=== PATIENT | male | born 1960 | race Caucasian/White ===

== ENCOUNTER 2024-07-24 18:35 | Inpatient (IN) ==
--- NOTE | 2024-07-24 18:44 | Emergency Department Note ---
Impression & Plan COVID-19, Acute respiratory failure with hypoxia and hypercapnia, Bilateral pneumonia, Sepsis, Non-ST elevation [place] (NSTEMI), Elevated brain natriuretic peptide (BNP) level ED Provider Note HISTORY OF PRESENT ILLNESS: Patient is a 63-year-old male presenting with shortness of breath. Patient was diagnosed with COVID-19 yesterday in the emergency department and it was recommended that he be admitted to the hospital but he had family obligations at home and was discharged. Patient states he has been taking Paxlovid at home. He is not normally on any supplemental oxygen. He reports that his shortness of breath progressively worsened throughout the day today he had to call 911. He also has been taking prednisone at home. He denies any DVT or PE history. He is on a baby aspirin daily. He has a history of CAD with multiple stents in place. He reports diffuse chest tightness with his shortness of breath. Denies any abdominal pain, nausea or vomiting. Denies any fevers. He has been having a productive cough. He states that he is bringing up "loose sputum." Patient reportedly was hypertensive with a blood pressure of over 200s for EMS. He had saturations in the 80s per EMS, and was placed on BiPAP and route to the hospital. He reportedly was given a DuoNeb treatment and route. ROS: as above PHYSICAL EXAM: Constitutional: Patient appears in no acute distress. HENT: Head: Normocephalic and atraumatic. Eyes: EOMI, PERRL Mouth/Throat: Mucous membranes moist. Neck: Trachea midline. Neck supple. Cardiovascular: Tachycardic with regular rhythm. No murmurs, rubs or gallops. Intact distal pulses. Pulmonary/Chest: Patient presents on BiPAP with EMS. He was taken off of BiPAP and saturating 91% on room air. He is placed on 4 L nasal cannula. He is conversationally dyspneic and tachypneic. Diffuse expiratory wheezes bilaterally. Abdominal: Abdomen soft, no tenderness, rebound or guarding. Musculoskeletal: No edema, tenderness or deformity noted. Skin: Warm and dry. No rash, erythema, pallor or cyanosis Psychiatric: Appropriate mood and affect for situation. Neurological: Alert and keenly responsive. CN II-XII grossly intact, moving all extremities equally and fully. MDM: - Vitals signs showed hypertension, tachycardia, tachypnea and hypoxia. Patient was initially placed on 4 L nasal cannula on arrival to the ER, as he is maintaining his saturations at about 89 to 91% on room air. He was given an hour-long DuoNeb treatment. - History obtained via patient. History as above. 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 At this time, monitor showed rate of 95 bpm with normal sinus rhythm, per my interpretation. - External medical records reviewed. Radiation oncology history and physical exam note dated 07/11/2024 was reviewed. Patient was seen for squamous cell carcinoma of the lower lobe of the right lung. He was planned to start radiation therapy in July 2024. - EKG interpreted by myself showed normal sinus rhythm. Rate tachycardic at 124 bpm. QT 382. Noted to have a right bundle branch block. - Laboratory workup interpreted by myself showed leukocytosis (WBC 17.42) with neutrophil predominance; normal PT/INR; elevated BUN (34); elevated troponin (37.7); elevated BNP (119); normal procalcitonin; normal lactate - Blood cultures added to workup - CXR shows bilateral pulmonary consolidations, per my interpretation. - IV Levaquin ordered for sepsis - Viral respiratory panel positive for COVID-19. - VBG shows respiratory acidosis with pH 7.24 and pCO2 of 69 mmHg. Patient was transition to BiPAP. He was on the BiPAP for about 2 hours. Repeat ABG shows worsening gas. However, on reassessment at 19:40, the patient does appear significantly more comfortable on the BiPAP. Tachypnea is improved. He does mentate and answer questions while in the BiPAP. No indication for intubation at this time. - Discussion was had with complex case manager about patient's case and need for admission - Hospitalist, Dr. Wharton, consulted for admission - Patient admitted to [facility] service for further evaluation and management. I have personally spent 64 minutes of critical care time in the direct management of this patient. This includes bedside care, interpretation of diagnostic studies, and testing, discussion with consultants, patient, and family members, and other required patient management activities. This 64 minutes is in excess of all separately billable procedures. ASSESSMENT AND PLAN: Diagnosis: COVID-19; sepsis; bilateral pneumonia; acute hypoxemic and hypercarbic respiratory failure; NSTEMI; elevated BNP Plan: admit Past Med/Surg History Problem List (Updated 07/24/24 @ 21:45 by Pam Lambert MD) Elevated brain natriuretic peptide (BNP) level (Acute) Non-ST elevation [place] (NSTEMI) (Acute) Sepsis (Acute) Bilateral pneumonia (Acute) Acute respiratory failure with hypoxia and hypercapnia (Acute) COVID-19 (Acute) Squamous cell carcinoma of lower lobe of right lung (Chronic 06/18/24) Medical History (Updated 07/24/24 @ 21:45 by Pam Lambert MD) Carotid artery stenosis Carotid doppler 09/2022: CHANEL/LICA less than 50% stenosis H/O vertigo Per records Asthma Per records History of ST elevation myocardial infarction (STEMI) 06/2015 > BMS x1 Follows with Dr. Cruz CAD (coronary artery disease) 06/2015 cath > BMS x1 07/2015 cath (d/t angina) > TAO x2 Follows with Dr. Cruz Squamous cell carcinoma of lung Right upper lobectomy, right thoractomy (08/2018) Hx of colonic polyps Pulmonary nodule Hx of renal cell carcinoma (2018) s/p Left total nephrectomy (10/2018), partial right nephrectomy (09/2018)- due to renal cell carcinoma Dyslipidemia Depression Hypertension COPD (chronic obstructive pulmonary disease) Surgical History (Updated 07/11/24 @ 08:28 by Padmini Mccarthy RN) History of cataract surgery History of anesthesia reaction "fentanyl gives me a pretty bad hangover" Hx of heart artery stent 06/2015 cath > BMS x1 07/2015 cath (d/t angina) > TAO x2 Hx of colonoscopy with polypectomy x2 Hx of biopsy Renal Hx of cardiac catheterization 06/2015 cath > BMS x1 07/2015 cath (d/t angina) > TAO x2 History of surgery on arm Left biceps tendon Hx of partial nephrectomy (2018) Left total (10/2018), partial right (09/2018)- due to renal cell carcinoma History of lobectomy of lung (08/2018) Right upper lobectomy, right thoractomy Hx of inguinal hernia repair Unsure of side Hx of wisdom tooth extraction H/O arthroscopy of left knee Family History (Updated 07/11/24 @ 09:08 by Padmini Mccarthy RN) Unknown No problems noted. 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 How many Children do You have: 0 Feels Safe at Home: Yes Childhood Exposure to Second-Hand Smoke: Yes Diet: regular caffeine: Yes during the past year weight has: remained stable Dental Care, Regularly: No Assistive Devices: Glasses and Nebulizer Allergies Allergies Allergy/AdvReac Type Severity Reaction Status Date / Time No Known Allergies Allergy Mild Verified 07/11/24 08:20 Home Meds Home Medications Medication Instructions Recorded Confirmed albuterol sulfate 90 mcg/actuation 2 puff inhalation Q4H PRN wheezing 01/24/23 07/24/24 aerosol inhaler or SOB ezetimibe 10 mg tablet 10 mg PO QAM 01/24/23 07/24/24 lisinopril 2.5 mg tablet 2.5 mg PO QAM 01/24/23 07/24/24 metoprolol succinate 50 mg 50 mg PO QAM 01/24/23 07/24/24 tablet,extended release 24 hr nitroglycerin 0.4 mg sublingual 4 mg sublingual DIRECTED PRN 01/24/23 07/24/24 tablet (Nitrostat) Chest Pain rosuvastatin 40 mg tablet 40 mg PO QAM 01/24/23 07/24/24 aspirin 81 mg tablet,delayed 81 mg PO DAILY 01/26/23 07/24/24 release calcium carb 1,000 mg-mag hydrox 2 tab PO DIRECTED PRN Acid 01/26/23 07/24/24 200 mg-simeth 40 mg chewable Reflux tablet (Rolaids Advanced Antacid Plus Anti-gas) calcium carbonate (Tums) 400 mg PO BID PRN Acid Reflux 01/26/23 07/24/24 melatonin 10 mg tablet 30 mg PO HS PRN Sleep 01/26/23 07/24/24 albuterol sulfate 1.25 mg/3 mL 1.25 mg inhalation BID 06/11/24 07/24/24 solution for nebulization fluticasone 250 mcg-salmeterol 50 1 inh inhalation BID 06/11/24 07/24/24 mcg/dose blistr powdr for inhalation Previous Rx's Medication Instructions Recorded nirmatrelvir 300 mg (150 mg See Rx Instructions PO .COMPLEX 07/23/24 x2)-ritonavir 100 mg tablet,dose #30 ea pack (Paxlovid) prednisone 20 mg tablet 20 mg PO BID 5 days #10 tabs 07/23/24 Results & Data (ED) Vital Signs Vital Signs - 24 hr 07/24/24 18:40 07/24/24 18:40 07/24/24 18:40 Temperature Temperature Source Pulse Rate 124 H Pulse Rate [Right Finger] 125 H Pulse Rate from SpO2 Sensor Respiratory Rate 22 18 Respiratory Effort / Characteristics Non-Labored Spontaneous Respiratory Depth Respiratory Pattern Blood Pressure Blood Pressure [Left Arm] 191/127 H Blood Pressure Mean Blood Pressure Mean [Left Arm] 148 Blood Pressure Position Blood Pressure Position [Left Arm] Lying Pulse Oximetry 91 90 92 Oxygen Delivery Method Room Air Room Air Nasal Cannula Oxygen Flow Rate 4 Fraction of Inspired Oxygen Sepsis Recent Fever Within 48 Hours Sepsis New/Unexplained Change in Mental Status Sepsis Action Taken by Nursing 07/24/24 18:44 07/24/24 18:44 07/24/24 18:45 Temperature 36.7 C Temperature Source Axillary Pulse Rate 122 H 120 H Pulse Rate [Right Finger] Pulse Rate from SpO2 Sensor Respiratory Rate 18 33 H Respiratory Effort / Characteristics Non-Labored Spontaneous Non-Labored Spontaneous Respiratory Depth Respiratory Pattern Blood Pressure 158/114 H 158/114 H Blood Pressure [Left Arm] Blood Pressure Mean 128 123 Blood Pressure Mean [Left Arm] Blood Pressure Position Lying Blood Pressure Position [Left Arm] Pulse Oximetry 99 98 Oxygen Delivery Method Nebulizer Nebulizer Oxygen Flow Rate Fraction of Inspired Oxygen Sepsis Recent Fever Within 48 Hours No Sepsis New/Unexplained Change in Mental Status No Sepsis Action Taken by Nursing No Action Required 07/24/24 18:50 07/24/24 18:56 07/24/24 19:00 Temperature Temperature Source Pulse Rate 121 H 117 H Pulse Rate [Right Finger] 120 H Pulse Rate from SpO2 Sensor 117 H Respiratory Rate 28 H 33 H Respiratory Effort / Characteristics Spontaneous Short of Breath Respiratory Depth Respiratory Pattern Blood Pressure 143/94 H Blood Pressure [Left Arm] Blood Pressure Mean 110 Blood Pressure Mean [Left Arm] Blood Pressure Position Blood Pressure Position [Left Arm] Pulse Oximetry 92 98 Oxygen Delivery Method Nasal Cannula Nebulizer Oxygen Flow Rate 4 Fraction of Inspired Oxygen Sepsis Recent Fever Within 48 Hours Sepsis New/Unexplained Change in Mental Status Sepsis Action Taken by Nursing 07/24/24 19:26 07/24/24 19:30 07/24/24 19:30 Temperature Temperature Source Pulse Rate 113 H 110 H 111 H Pulse Rate [Right Finger] Pulse Rate from SpO2 Sensor Respiratory Rate 30 H 35 H 35 H Respiratory Effort / Characteristics Spontaneous Short of Breath Respiratory Depth Normal Respiratory Pattern Tachypnea Blood Pressure 147/85 H 147/85 H Blood Pressure [Left Arm] Blood Pressure Mean 99 99 Blood Pressure Mean [Left Arm] Blood Pressure Position Blood Pressure Position [Left Arm] Pulse Oximetry 97 97 98 Oxygen Delivery Method BiPAP BiPAP Oxygen Flow Rate Fraction of Inspired Oxygen 40 Sepsis Recent Fever Within 48 Hours Sepsis New/Unexplained Change in Mental Status Sepsis Action Taken by Nursing 07/24/24 19:45 07/24/24 20:26 07/24/24 21:32 Temperature Temperature Source Pulse Rate 112 H 114 H 95 H Pulse Rate [Right Finger] Pulse Rate from SpO2 Sensor 112 H Respiratory Rate 40 H Respiratory Effort / Characteristics Respiratory Depth Respiratory Pattern Blood Pressure 139/86 148/89 H 139/85 Blood Pressure [Left Arm] Blood Pressure Mean 103 Blood Pressure Mean [Left Arm] Blood Pressure Position Blood Pressure Position [Left Arm] Pulse Oximetry 98 Oxygen Delivery Method BiPAP Oxygen Flow Rate Fraction of Inspired Oxygen Sepsis Recent Fever Within 48 Hours Sepsis New/Unexplained Change in Mental Status Sepsis Action Taken by Nursing Laboratory Data 07/24/24 18:40 07/24/24 19:46 Lab Results 07/24/24 07/24/24 07/24/24 Range/Units 18:40 19:43 19:46 WBC 17.24 H (4.8-10.8) K/ul RBC 5.57 (4.70-6.10) M/uL Hgb 16.7 (14.0-18.0) g/dl Hct 50.9 (42.0-52.0) % MCV 91.4 (80.0-100.0) fL MCH 30.0 (25.0-34.0) pg MCHC 32.8 (32.0-36.0) g/dL RDW Std Deviation 43.1 (36.4-46.3) fL RDW Coeff of Celia 12.8 (11.5-14.5) % Plt Count 324 (130-400) K/uL MPV 8.7 L (9.4-12.4) fL Immature Gran % (Auto) 1.7 % Neut % (Auto) 75.2 % Lymph % (Auto) 11.1 % Bowie % (Auto) 11.5 % Eos % (Auto) 0.1 % Baso % (Auto) 0.4 % Neut # (Auto) 12.96 H (1.40-6.50) K/uL Lymph # (Auto) 1.92 (1.20-3.40) K/uL Bowie # (Auto) 1.98 H (0.11-0.59) K/uL Eos # (Auto) 0.01 (0.00-0.50) K/uL Baso # (Auto) 0.07 (0.00-0.20) K/uL Immature Gran # (Auto) 0.30 H (0.01-0.20) K/uL PT 10.1 (9.0-12.0) Seconds INR 0.9 (0.9-1.1) VBG pH 7.24 L (7.36-7.41) VBG pCO2 69 H (38-50) mmHg VBG pO2 41 mmHg VBG HCO3 30 mmol/L VBG O2 Saturation 64.0 % VBG Base Excess 0.4 mEq/L Sodium Cancelled 139 Potassium Cancelled 4.4 Chloride Cancelled 104 Carbon Dioxide Cancelled 27 Anion Gap Cancelled 8 BUN Cancelled 34 H Creatinine Cancelled 1.18 Est Cr Clr Drug Dosing Cancelled 78.3 eGFR Cancelled 68.91 BUN/Creatinine Ratio Cancelled 28.8 H Glucose Cancelled 140 H Lactate 0.9 (0.4-2.0) mmol/L Calcium Cancelled 9.1 Magnesium Cancelled 2.2 Total Bilirubin Cancelled 0.3 AST Cancelled 30 ALT Cancelled 35 Alkaline Phosphatase Cancelled 68 Troponin I High Sens Cancelled 37.7 H D B-Natriuretic Peptide 119 H (0-100) pg/ml Total Protein Cancelled 7.2 Albumin Cancelled 3.6 Globulin Cancelled 3.6 Albumin/Globulin Ratio Cancelled 1.0 Procalcitonin 0.14 (0-0.5) ng/ml Adenovirus (PCR) Not Detected (NotDetected) B. pertussis DNA (PCR) Not Detected (NotDetected) B.parapertussis DNA PCR Not Detected (NotDetected) C. pneumoniae DNA (PCR) Not Detected (NotDetected) Coronavirus OC43 (PCR) Not Detected (NotDetected) Coronavirus HKU1 (PCR) Not Detected (NotDetected) Coronavirus 229E (PCR) Not Detected (NotDetected) SARS-CoV-2 (PCR) DETECTED A (NotDetected) Coronavirus NL63 (PCR) Not Detected (NotDetected) Human Metapneumovir PCR Not Detected (NotDetected) Influenza Type A (PCR) Not Detected (NotDetected) Influenza Type B (PCR) Not Detected (NotDetected) M. pneumoniae (PCR) Not Detected (NotDetected) Parainfluenza 1 (PCR) Not Detected (NotDetected) Parainfluenza 2 (PCR) Not Detected (NotDetected) Parainfluenza 3 (PCR) Not Detected (NotDetected) Parainfluenza 4 (PCR) Not Detected (NotDetected) RSV (PCR) Not Detected (NotDetected) Entero/Rhino (PCR) Not Detected (NotDetected) Administered Medications Discontinued Medications Albuterol (Albut/Ipratrop 3mg/0.5mg Neb 3 Ml Vial) 12 ml NEB ONE ONE; Protocol Stop: 07/24/24 18:44 Last Admin: 07/24/24 18:54 Dose: 12 ml Documented By: HERMAN Albuterol (Albut/Ipratrop 3mg/0.5mg Neb 3 Ml Vial) Confirm Administered Dose 12 ml .ROUTE .STK-MED ONE Stop: 07/24/24 18:47 Last Admin: 07/24/24 18:56 Dose: Not Given Documented By: PAKO Dexamethasone Sodium Phosphate (DexamethasonePf 10 Mg/Ml Vial) 10 mg IV NOW STA Stop: 07/24/24 21:30 Last Admin: 07/24/24 21:32 Dose: 10 mg Documented By: QUINTON Levofloxacin/Dextrose (Levaquin/D5w) 750 mg in 150 mls @ 100 mls/hr IV NOW STA Stop: 07/24/24 21:00 Last Admin: 07/24/24 20:24 Dose: 100 mls/hr Documented By: QUINTON Sodium Chloride (Nss) 1,000 mls @ 999 mls/hr IV .Q1H1M ONE Stop: 07/24/24 20:57 Last Infusion: 07/24/24 21:36 Dose: Infused Documented By: Admin: 07/24/24 20:23 Dose: 999 mls/hr Documented By: QUINTON Metoprolol Tartrate (Metoprolol Tartrate 1 Mg/Ml Vial) 2.5 mg IV NOW STA Stop: 07/24/24 19:58 Last Admin: 07/24/24 20:26 Dose: 2.5 mg Documented By: QUINTON Imaging Data Radiologist's Impression: Chest X-Ray 07/24/24 18:36 EXAM: XR chest 1V portable CLINICAL HISTORY: DYSPNEA. TECHNIQUE: Chest X-ray, Frontal AP Projection. COMPARISON: Prior dated 07/23/2024. FINDINGS: Redemonstration of the reticular opacities in both lungs' mid and lower zones. No consolidation or soft tissue nodular infiltration was seen. Both mediastinal and hilar contours are intact. The right CP angle is intact. The left CP angle can not be commented. Stable appearing mild cardiomegaly. Retrocardiac space is clear. No significant pathology was identified in the visualized skeleton. IMPRESSION: 1. Redemonstration of the reticular opacities in both lungs' mid and lower zones. 2. Stable appearing mild cardiomegaly. 3. No interval change is noted. 4. Further evaluation with CT is recommended if clinically warranted. Electronically signed by Mat De Guzman 07-24-2024 7:51 PM Discharge Plan Visit Data Chief Complaint: Shortness of Breath/Dyspnea Stated Complaint: SOB ED Provider: Pam Lambert Discharge Problem: COVID-19, Acute respiratory failure with hypoxia and hypercapnia, Bilateral pneumonia, Sepsis, Non-ST elevation [place] (NSTEMI), Elevated brain natriuretic peptide (BNP) level Forms Stand Alone Forms: My [facility] Prescriptions Prescriptions: No Action metoprolol succinate 50 mg tablet extended release 24 hr 50 mg PO QAM nitroglycerin [Nitrostat] 0.4 mg Tablet, Sublingual 4 mg sublingual DIRECTED PRN (Reason: Chest Pain) albuterol sulfate 90 mcg/actuation HFA aerosol inhaler 2 puff INHALATION Q4H PRN (Reason: wheezing or SOB) lisinopril 2.5 mg tablet 2.5 mg PO QAM ezetimibe 10 mg tablet 10 mg PO QAM rosuvastatin 40 mg tablet 40 mg PO QAM aspirin 81 mg Tablet,Delayed Release (Dr/Ec) 81 mg PO DAILY calcium carbonate [Tums] 200 mg calcium (500 mg) Tablet,Chewable 400 mg PO BID PRN (Reason: Acid Reflux) melatonin 10 mg Tablet 30 mg PO HS PRN (Reason: Sleep) Rolaids Adv Antacid-[place] 1,000-200-40 mg Tablet,Chewable 2 tab PO DIRECTED PRN (Reason: Acid Reflux) Paxlovid 300 mg (150 mg x 2)-100 mg tablets,dose pack See Rx Instructions .ROUTE .COMPLEX Qty: 30 0RF Rx Instructions: take TWO 150 mg tablets of nirmatrelvir with ONE 100 mg tablet of ritonavir twice daily for 5 days prednisone 20 mg tablet 20 mg PO BID 5 Days Qty: 10 0RF fluticasone propion-salmeterol 250-50 mcg/dose blister with device 1 inh INHALATION BID albuterol sulfate 1.25 mg/3 mL solution for nebulization 1.25 mg inhalation BID Referrals Referrals: Florence Alford MD [Primary Care Provider] -
[2024-07-24] MEDS: ALBUT/IPRATROP 3MG/0.5MG NEB 3 ML VIAL NEB ONE (18:54)
[2024-07-24] MEDS: ALBUT/IPRATROP 3MG/0.5MG NEB 3 ML VIAL ONE (18:56)
[2024-07-24 19:00] LABS: Base Excess VBG 0.4 mEq/L; HCO3 VBG 30 mmol/L; PCO2 VBG 69 mmHg (38-50); PO2 VBG 41 mmHg; pH VBG 7.24 (7.36-7.41)
[2024-07-24 19:07] LABS: Basophils # (auto) 0.07 K/uL (0.00-0.20); Basophils % (auto) 0.4 %; Eosinophils # (auto) 0.01 K/uL (0.00-0.50); Eosinophils % (auto) 0.1 %; Hematocrit (blood only) 50.9 % (42.0-52.0); Hemoglobin 16.7 g/dl (14.0-18.0); Immature Granulocytes % (auto) 1.7 %; Lymphocytes # (auto) 1.92 K/uL (1.20-3.40); Lymphocytes % (auto) 11.1 %; Mean Corpuscular Hgb Conc 32.8 g/dL (32.0-36.0); Mean Corpuscular Volume 91.4 fL (80.0-100.0); Mean Platelet Volume 8.7 fL (9.4-12.4); Monocytes # (auto) 1.98 K/uL (0.11-0.59); Monocytes % (auto) 11.5 %; Neutrophils # (auto) 12.96 K/uL (1.40-6.50); Neutrophils % (auto) 75.2 %; Platelet Count 324 K/uL (130-400); RDW Coefficient of Variation 12.8 % (11.5-14.5); RDW Standard Deviation 43.1 fL (36.4-46.3); Red Blood Count 5.57 M/uL (4.70-6.10); White Blood Count 17.24 K/ul (4.8-10.8)
[2024-07-24 19:28] LABS: INR 0.9 (0.9-1.1); Prothrombin Time 10.1 Seconds (9.0-12.0)
--- NOTE | 2024-07-24 19:52 | XRay Report ---
EXAM: XR chest 1V portable CLINICAL HISTORY: DYSPNEA. TECHNIQUE: Chest X-ray, Frontal AP Projection. COMPARISON: Prior dated 07/23/2024. FINDINGS: Redemonstration of the reticular opacities in both lungs' mid and lower zones. No consolidation or soft tissue nodular infiltration was seen. Both mediastinal and hilar contours are intact. The right CP angle is intact. The left CP angle can not be commented. Stable appearing mild cardiomegaly. Retrocardiac space is clear. No significant pathology was identified in the visualized skeleton. IMPRESSION: 1. Redemonstration of the reticular opacities in both lungs' mid and lower zones. 2. Stable appearing mild cardiomegaly. 3. No interval change is noted. 4. Further evaluation with CT is recommended if clinically warranted. Electronically signed by Mat De Guzman 07-24-2024 7:51 PM
[2024-07-24 20:06] LABS: Adenovirus PCR Not Detected (NotDetected); Bordetella parapertussis PCR Not Detected (NotDetected); Bordetella pertussis PCR Not Detected (NotDetected); Chlamydia pneumoniae PCR Not Detected (NotDetected); Coronavirus 229E PCR Not Detected (NotDetected); Coronavirus CoV-2 (COVID19)PCR DETECTED (NotDetected); Coronavirus HKU1 PCR Not Detected (NotDetected); Coronavirus NL63 PCR Not Detected (NotDetected); Coronavirus OC43PCR Not Detected (NotDetected); Human Metapneumovirus PCR Not Detected (NotDetected); Influenza A PCR Not Detected (NotDetected); Influenza B PCR Not Detected (NotDetected); Mycoplasma pneumoniae PCR Not Detected (NotDetected); Parainfluenza Virus 1 PCR Not Detected (NotDetected); Parainfluenza Virus 2 PCR Not Detected (NotDetected); Parainfluenza Virus 3 PCR Not Detected (NotDetected); Parainfluenza Virus 4 PCR Not Detected (NotDetected); Respiratory Syncytial VirusPCR Not Detected (NotDetected); Rhinovirus/Enterovirus PCR Not Detected (NotDetected)
[2024-07-24] MEDS: SODIUM CHLORIDE 0.9% 1,000 ML IV ONE (20:23)
[2024-07-24] MEDS: levoFLOXacin/D5W 750 MG/150 ML BAG IV STA (20:24)
[2024-07-24] MEDS: METOPROLOL TARTRATE 1 MG/ML VIAL IV STA (20:26)
[2024-07-24] MEDS ORDERED: dexAMETHasone**PF** 10 MG/ML VIAL IV ONE (20:27)
[2024-07-24 20:47] LABS: Albumin Level 3.6 gm/dl (3.4-5.0); BUN Creatinine Ratio 28.8 (10-20); Bilirubin,Total 0.3 mg/dl (0.2-1.0); Calcium 9.1 mg/dl (8.6-10.3); Creatinine Clr Calc Pharmacy 78.3 ml/min; Globulin 3.6 gm/dl (2.5-4.0); Magnesium 2.2 mg/dl (1.7-2.4); Potassium 4.4 mmol/L (3.5-5.1); Total Protein 7.2 gm/dl (6.0-8.3)
[2024-07-24 20:54] LABS: Troponin I High Sensitivity 37.7 pg/ml (0-20)
[2024-07-24] MEDS: dexAMETHasone**PF** 10 MG/ML VIAL IV STA (21:32)
--- NOTE | 2024-07-24 22:37 | History & Physical Report ---
Date of Service July 24, 2024 Assessment & Plan (1) Acute respiratory failure with hypoxia and hypercapnia: Plan: Secondary to severe COVID-19 pneumonia Patient septic from COPD exacerbation/complicated bronchitis. Underlying pulm hypertension Failed outpatient treatment Rule out PE given chest pain complaints and troponin elevation hx CAD status post stent/PVD hypertension, elevated secondary to illness anxiety hyperlipidemia, on statin Rx squamous cell lung cancer status post surgery pulmonary nodules, concern for malignancy, workup outlined by [facility] building operator on last outpatient provider note. bilateral renal cell carcinoma status post surgery DM2 diet-controlled, well-controlled as of recent hemoglobin A1c of 6.27 May 2024 ongoing tobacco abuse PCU BiPAP Recheck ABG Decadron and remdesivir Rx for severe COVID-19 pneumonia CS, doxycycline for complicated bronchitis CT chest PE study Pulmonary consult if without improvement Follow troponin, TTE for progression ISS BG goal 1 10-1 40, carb count coverage Nicotine patch DVT prophylaxis. Lovenox subcu Full code Total critical care time was 50 minutes. Text document was generated using [employer] voice recognition software. It may contain grammatical or spelling errors. Kindly contact undersigned for clarification of any documentation item in question. History of Present Illness Chief Complaint: Worsening shortness of breath, chest pain Primary Care Provider: Florence Alford MD History obtained from patient and records. Medical history significant for CAD status post stent, PVD, hypertension, hyperlipidemia, COPD, pulmonary hypertension, squamous cell lung cancer status post surgery pulmonary nodule, bilateral renal cell carcinoma status post surgery, DM2 diet-controlled, ongoing tobacco abuse. Last confinement 2015 under Cardiology service for STEMI status post PCI. 2 days history of junky cough symptoms, SOB. Denies chest pain. Not sure about sick contacts. O2 sats 80s upon arrival at the ER. Patient refused admission recommendations from ED provider. Patient discharged on Paxlovid and prednisone course. Worsening symptoms at home despite compliance with new medications. Transient substernal pain pleuritic. Levaquin given at the ER. Medical History as above Surgical History : Bilateral nephrectomy, vaginoscopy, cataract surgeries, hernia repair, right lung lobectomy Family History : Unknown as patient is adopted Personal/Social history : 1 pack daily, no EtOH intake, retired [employer] employee Allergies Allergy/AdvReac Type Severity Reaction Status Date / Time No Known Allergies Allergy Mild Verified 07/11/24 08:20 Home Medications Medication Instructions Recorded Confirmed Type albuterol sulfate 90 mcg/actuation 2 puff inhalation Q4H PRN wheezing 01/24/23 07/24/24 History aerosol inhaler or SOB ezetimibe 10 mg tablet 10 mg PO QAM 01/24/23 07/24/24 History lisinopril 2.5 mg tablet 2.5 mg PO QAM 01/24/23 07/24/24 History metoprolol succinate 50 mg 50 mg PO QAM 01/24/23 07/24/24 History tablet,extended release 24 hr nitroglycerin 0.4 mg sublingual 4 mg sublingual DIRECTED PRN 01/24/23 07/24/24 History tablet (Nitrostat) Chest Pain rosuvastatin 40 mg tablet 40 mg PO QAM 01/24/23 07/24/24 History aspirin 81 mg tablet,delayed 81 mg PO DAILY 01/26/23 07/24/24 History release calcium carb 1,000 mg-mag hydrox 2 tab PO DIRECTED PRN Acid 01/26/23 07/24/24 History 200 mg-simeth 40 mg chewable Reflux tablet (Rolaids Advanced Antacid Plus Anti-gas) calcium carbonate (Tums) 400 mg PO BID PRN Acid Reflux 01/26/23 07/24/24 History melatonin 10 mg tablet 30 mg PO HS PRN Sleep 01/26/23 07/24/24 History albuterol sulfate 1.25 mg/3 mL 1.25 mg inhalation BID 06/11/24 07/24/24 History solution for nebulization fluticasone 250 mcg-salmeterol 50 1 inh inhalation BID 06/11/24 07/24/24 History mcg/dose blistr powdr for inhalation nirmatrelvir 300 mg (150 mg See Rx Instructions PO .COMPLEX 07/23/24 07/24/24 Rx x2)-ritonavir 100 mg tablet,dose #30 ea pack (Paxlovid) prednisone 20 mg tablet 20 mg PO BID 5 days #10 tabs 07/23/24 07/24/24 Rx Past Med/Surg History Problem List (Updated 07/25/24 @ 09:24 by Joan Finn MD) Hypertension, essential Hyperlipidemia COPD with exacerbation Elevated troponin Elevated brain natriuretic peptide (BNP) level (Acute) Non-ST elevation [place] (NSTEMI) (Acute) Sepsis (Acute) Bilateral pneumonia (Acute) Acute respiratory failure with hypoxia and hypercapnia (Acute) COVID-19 (Acute) Squamous cell carcinoma of lower lobe of right lung (Chronic 06/18/24) Medical History (Updated 07/25/24 @ 09:24 by Joan Finn MD) Carotid artery stenosis Carotid doppler 09/2022: CHANEL/LICA less than 50% stenosis H/O vertigo Per records Asthma Per records History of ST elevation myocardial infarction (STEMI) 06/2015 > BMS x1 Follows with Dr. Cruz CAD (coronary artery disease) 06/2015 cath > BMS x1 07/2015 cath (d/t angina) > TAO x2 Follows with Dr. Cruz Squamous cell carcinoma of lung Right upper lobectomy, right thoractomy (08/2018) Hx of colonic polyps Pulmonary nodule Hx of renal cell carcinoma (2018) s/p Left total nephrectomy (10/2018), partial right nephrectomy (09/2018)- due to renal cell carcinoma Dyslipidemia Depression Hypertension COPD (chronic obstructive pulmonary disease) Surgical History (Updated 07/11/24 @ 08:28 by Padmini Mccarthy, BARAK) History of cataract surgery History of anesthesia reaction "fentanyl gives me a pretty bad hangover" Hx of heart artery stent 06/2015 cath > BMS x1 07/2015 cath (d/t angina) > TAO x2 Hx of colonoscopy with polypectomy x2 Hx of biopsy Renal Hx of cardiac catheterization 06/2015 cath > BMS x1 07/2015 cath (d/t angina) > TAO x2 History of surgery on arm Left biceps tendon Hx of partial nephrectomy (2018) Left total (10/2018), partial right (09/2018)- due to renal cell carcinoma History of lobectomy of lung (08/2018) Right upper lobectomy, right thoractomy Hx of inguinal hernia repair Unsure of side Hx of wisdom tooth extraction H/O arthroscopy of left knee Family History (Updated 07/11/24 @ 09:08 by Padmini Mccarthy RN) Unknown No problems noted. 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 How many Children do You have: 0 Feels Safe at Home: Yes Safety Concerns: Feels Safe At This Time Childhood Exposure to Second-Hand Smoke: Yes Diet: regular caffeine: Yes during the past year weight has: remained stable Dental Care, Regularly: No Assistive Devices: Nebulizer Review of Systems Review of Systems: As per HPI, all other systems reviewed and negative Physical Exam Physical Exam: GENERAL: uncomfortable, anxious, obese, respiratory distress SKIN: Normal color, warm HEENT: Bespectacled, [place] palpebral conjunctivae, no ptosis, dry buccal mucosa, nasal cannula in place NECK : Supple, short neck, no tenderness CHEST : Decreased breath sounds, expiratory wheezes, no tenderness HEART : Tachycardic, no obvious murmurs ABDOMEN: Some distention, nontender EXTREMITIES : No LE swelling/tenderness, no other conspicuous deformities noted NEUROLOGIC : Coherent, no facial asymmetry, no other gross focality Results & Data Results & Data Vital Signs (Past 12 Hours) Vital Signs Temp Pulse Pulse Resp BP BP Pulse Ox 07/24/24 21:32 95 H 139/85 07/24/24 21:30 99 H 28 H 139/85 95 07/24/24 21:15 95 H 29 H 157/96 H 98 07/24/24 21:00 96 H 28 H 158/96 H 97 07/24/24 20:45 94 H 28 H 146/89 H 98 07/24/24 20:30 95 H 28 H 149/91 H 98 07/24/24 20:26 114 H 148/89 H 07/24/24 20:00 112 H 30 H 131/84 97 07/24/24 19:45 112 H 40 H 139/86 98 07/24/24 19:30 111 H 35 H 147/85 H 98 07/24/24 19:30 110 H 35 H 147/85 H 97 07/24/24 19:26 113 H 30 H 97 07/24/24 19:00 117 H 33 H 143/94 H 98 07/24/24 18:56 120 H 28 H 92 07/24/24 18:50 121 H 07/24/24 18:45 120 H 33 H 158/114 H 98 07/24/24 18:44 36.7 C 122 H 18 158/114 H 99 07/24/24 18:40 124 H 18 92 07/24/24 18:40 125 H 22 191/127 H 90 07/24/24 18:40 91 O2 Del Method O2 Flow Rate FiO2 07/24/24 21:32 07/24/24 21:30 Nasal Cannula 4 07/24/24 21:15 BiPAP 07/24/24 21:00 BiPAP 07/24/24 20:45 BiPAP 07/24/24 20:30 BiPAP 07/24/24 20:26 07/24/24 20:00 BiPAP 07/24/24 19:45 BiPAP 07/24/24 19:30 BiPAP 07/24/24 19:30 BiPAP 07/24/24 19:26 40 07/24/24 19:00 Nebulizer 07/24/24 18:56 Nasal Cannula 4 07/24/24 18:50 07/24/24 18:45 Nebulizer 07/24/24 18:44 Nebulizer 07/24/24 18:40 Nasal Cannula 4 07/24/24 18:40 Room Air 07/24/24 18:40 Room Air Laboratory Results Laboratory Results WBC 17.24 K/ul (4.8-10.8) H 07/24/24 18:40 RBC 5.57 M/uL (4.70-6.10) 07/24/24 18:40 Hgb 16.7 g/dl (14.0-18.0) 07/24/24 18:40 Hct 50.9 % (42.0-52.0) 07/24/24 18:40 MCV 91.4 fL (80.0-100.0) 07/24/24 18:40 MCH 30.0 pg (25.0-34.0) 07/24/24 18:40 MCHC 32.8 g/dL (32.0-36.0) 07/24/24 18:40 RDW Std Deviation 43.1 fL (36.4-46.3) 07/24/24 18:40 RDW Coeff of Celia 12.8 % (11.5-14.5) 07/24/24 18:40 Plt Count 324 K/uL (130-400) 07/24/24 18:40 MPV 8.7 fL (9.4-12.4) L 07/24/24 18:40 Immature Gran % (Auto) 1.7 % 07/24/24 18:40 Neut % (Auto) 75.2 % 07/24/24 18:40 Lymph % (Auto) 11.1 % 07/24/24 18:40 [place] % (Auto) 11.5 % 07/24/24 18:40 Eos % (Auto) 0.1 % 07/24/24 18:40 Baso % (Auto) 0.4 % 07/24/24 18:40 Neut # (Auto) 12.96 K/uL (1.40-6.50) H 07/24/24 18:40 Lymph # (Auto) 1.92 K/uL (1.20-3.40) 07/24/24 18:40 [place] # (Auto) 1.98 K/uL (0.11-0.59) H 07/24/24 18:40 Eos # (Auto) 0.01 K/uL (0.00-0.50) 07/24/24 18:40 Baso # (Auto) 0.07 K/uL (0.00-0.20) 07/24/24 18:40 Immature Gran # (Auto) 0.30 K/uL (0.01-0.20) H 07/24/24 18:40 PT 10.1 Seconds (9.0-12.0) 07/24/24 18:40 INR 0.9 (0.9-1.1) 07/24/24 18:40 VBG pH 7.24 (7.36-7.41) L 07/24/24 18:40 VBG pCO2 69 mmHg (38-50) H 07/24/24 18:40 VBG pO2 41 mmHg 07/24/24 18:40 VBG HCO3 30 mmol/L 07/24/24 18:40 VBG O2 Saturation 64.0 % 07/24/24 18:40 VBG Base Excess 0.4 mEq/L 07/24/24 18:40 Sodium 139 mmol/L (136-145) 07/24/24 19:46 Potassium 4.4 mmol/L (3.5-5.1) 07/24/24 19:46 Chloride 104 mmol/L (98-107) 07/24/24 19:46 Carbon Dioxide 27 mmol/L (21-32) 07/24/24 19:46 Anion Gap 8 (3-11) 07/24/24 19:46 BUN 34 mg/dl (6-23) H 07/24/24 19:46 Creatinine 1.18 mg/dl (0.6-1.4) 07/24/24 19:46 Est Cr Clr Drug Dosing 78.3 ml/min 07/24/24 19:46 eGFR 68.91 07/24/24 19:46 BUN/Creatinine Ratio 28.8 (10-20) H 07/24/24 19:46 Glucose 140 mg/dl (70-99(Fasting)) H 07/24/24 19:46 Lactate 0.9 mmol/L (0.4-2.0) 07/24/24 19:43 Calcium 9.1 mg/dl (8.6-10.3) 07/24/24 19:46 Magnesium 2.2 mg/dl (1.7-2.4) 07/24/24 19:46 Total Bilirubin 0.3 mg/dl (0.2-1.0) 07/24/24 19:46 AST 30 U/L (13-39) 07/24/24 19:46 ALT 35 U/L (7-52) 07/24/24 19:46 Alkaline Phosphatase 68 U/L (34-104) 07/24/24 19:46 Troponin I High Sens 37.7 pg/ml (0-20) H D 07/24/24 19:46 B-Natriuretic Peptide 119 pg/ml (0-100) H 07/24/24 18:40 Total Protein 7.2 gm/dl (6.0-8.3) 07/24/24 19:46 Albumin 3.6 gm/dl (3.4-5.0) 07/24/24 19:46 Globulin 3.6 gm/dl (2.5-4.0) 07/24/24 19:46 Albumin/Globulin Ratio 1.0 (0.9-2) 07/24/24 19:46 Procalcitonin 0.14 ng/ml (0-0.5) 07/24/24 19:46 Adenovirus (PCR) Not Detected (NotDetected) 07/24/24 18:40 B. pertussis DNA (PCR) Not Detected (NotDetected) 07/24/24 18:40 B.parapertussis DNA PCR Not Detected (NotDetected) 07/24/24 18:40 C. pneumoniae DNA (PCR) Not Detected (NotDetected) 07/24/24 18:40 Coronavirus OC43 (PCR) Not Detected (NotDetected) 07/24/24 18:40 Coronavirus HKU1 (PCR) Not Detected (NotDetected) 07/24/24 18:40 Coronavirus 229E (PCR) Not Detected (NotDetected) 07/24/24 18:40 SARS-CoV-2 (PCR) DETECTED (NotDetected) A 07/24/24 18:40 Coronavirus NL63 (PCR) Not Detected (NotDetected) 07/24/24 18:40 Human Metapneumovir PCR Not Detected (NotDetected) 07/24/24 18:40 Influenza Type A (PCR) Not Detected (NotDetected) 07/24/24 18:40 Influenza Type B (PCR) Not Detected (NotDetected) 07/24/24 18:40 M. pneumoniae (PCR) Not Detected (NotDetected) 07/24/24 18:40 Parainfluenza 1 (PCR) Not Detected (NotDetected) 07/24/24 18:40 Parainfluenza 2 (PCR) Not Detected (NotDetected) 07/24/24 18:40 Parainfluenza 3 (PCR) Not Detected (NotDetected) 07/24/24 18:40 Parainfluenza 4 (PCR) Not Detected (NotDetected) 07/24/24 18:40 RSV (PCR) Not Detected (NotDetected) 07/24/24 18:40 Entero/Rhino (PCR) Not Detected (NotDetected) 07/24/24 18:40 Impressions Chest X-Ray 07/24/24 18:36 EXAM: XR chest 1V portable CLINICAL HISTORY: DYSPNEA. TECHNIQUE: Chest X-ray, Frontal AP Projection. COMPARISON: Prior dated 07/23/2024. FINDINGS: Redemonstration of the reticular opacities in both lungs' mid and lower zones. No consolidation or soft tissue nodular infiltration was seen. Both mediastinal and hilar contours are intact. The right CP angle is intact. The left CP angle can not be commented. Stable appearing mild cardiomegaly. Retrocardiac space is clear. No significant pathology was identified in the visualized skeleton. IMPRESSION: 1. Redemonstration of the reticular opacities in both lungs' mid and lower zones. 2. Stable appearing mild cardiomegaly. 3. No interval change is noted. 4. Further evaluation with CT is recommended if clinically warranted. Electronically signed by Mat De Guzman 07-24-2024 7:51 PM Diagnostic Findings EKG as per my interpretation :Rate 120, wide QRS tachycardia, RBBB, no ischemia
[2024-07-24] MEDS ORDERED: PROMETHAZINE 6.25 MG/50.25 ML BAG IV PRN (22:43)
[2024-07-24] MEDS ORDERED: hydrOXYzine HCl 10 MG TAB PO PRN (22:43)
[2024-07-24] MEDS ORDERED: CALCIUM CARBONATE 500 MG CHEWABLE TAB PO PRN (22:46)
[2024-07-24] MEDS ORDERED: NITROGLYCERIN SL 0.4 MG/TAB TAB SL PRN (22:46)
[2024-07-24 22:58] LABS: Base Excess VBG -3.6 mEq/L; HCO3 VBG 27 mmol/L; Oxygen Saturation VBG 91.8 %; PCO2 VBG 78 mmHg (38-50); PO2 VBG 67 mmHg; pH VBG 7.15 (7.36-7.41)
[2024-07-24 23:35] LABS: Troponin I High Sensitivity 62.5 pg/ml (0-20)
[2024-07-24 23:37] LABS: Thyroid Stimulating Hormone 0.737 uIu/ml (0.300-4.500)
[2024-07-24] MEDS: hydrOXYzine HCl 25 MG TAB PO STA (23:51)
[2024-07-24] MEDS: REMDESIVIR 200 MG in SODIUM CHLORIDE 0.9% 210 ML IV STA (23:51)
[2024-07-24] MEDS: IPRATROPIUM BROMIDE NEB SOLN 0.02% 0.5MG/2.5ML VIAL ONE (23:55)
[2024-07-24] MEDS: LEVALBUTEROL 1.25 MG/3 ML NEB ONE (23:56)
[2024-07-25 01:32] LABS: Base Excess VBG -1.1 mEq/L; HCO3 VBG 28 mmol/L; Oxygen Saturation VBG 97.7 %; PCO2 VBG 67 mmHg (38-50); PO2 VBG 87 mmHg; pH VBG 7.23 (7.36-7.41)
[2024-07-25 01:41] LABS: Basophils # (auto) 0.07 K/uL (0.00-0.20); Basophils % (auto) 0.5 %; Eosinophils # (auto) 0.01 K/uL (0.00-0.50); Eosinophils % (auto) 0.1 %; Hematocrit (blood only) 47.6 % (42.0-52.0); Hemoglobin 15.7 g/dl (14.0-18.0); Immature Granulocytes # (auto) 0.26 K/uL (0.01-0.20); Immature Granulocytes % (auto) 1.7 %; Lymphocytes # (auto) 1.23 K/uL (1.20-3.40); Mean Corpuscular Hemoglobin 30.7 pg (25.0-34.0); Mean Corpuscular Volume 93.2 fL (80.0-100.0); Mean Platelet Volume 8.7 fL (9.4-12.4); Monocytes # (auto) 1.68 K/uL (0.11-0.59); Monocytes % (auto) 10.9 %; Neutrophils # (auto) 12.18 K/uL (1.40-6.50); Neutrophils % (auto) 78.8 %; Platelet Count 276 K/uL (130-400); RDW Standard Deviation 44.3 fL (36.4-46.3); Red Blood Count 5.11 M/uL (4.70-6.10); White Blood Count 15.43 K/ul (4.8-10.8)
[2024-07-25] MEDS ORDERED: DEXTROSE 50% 50 ML SYRINGE IV PRN (01:47)
[2024-07-25] MEDS ORDERED: CARBOHYDRATES FOR HYPOGLYCEMIA PO PRN (01:47)
[2024-07-25] MEDS ORDERED: GLUCAGON FOR INJ 1 MG VIAL SQ PRN (01:47)
[2024-07-25] MEDS ORDERED: GLUCOSE 10 TAB/TUBE PO PRN (01:47)
[2024-07-25] MEDS ORDERED: GLUCOSE 40% GEL 15 GM TUBE PO PRN (01:47)
[2024-07-25 01:55] LABS: Calcium 8.7 mg/dl (8.6-10.3); Creatinine Clr Calc Pharmacy 86.3 ml/min; Potassium 4.9 mmol/L (3.5-5.1)
[2024-07-25] MEDS ORDERED: MELATONIN 3 MG TAB PO PRN (02:01)
[2024-07-25 02:06] LABS: Troponin I High Sensitivity 68.6 pg/ml (0-20)
[2024-07-25] MEDS: IPRATROPIUM BROMIDE NEB SOLN 0.02% 0.5MG/2.5ML VIAL INH SCH (02:17)
[2024-07-25] MEDS: LEVALBUTEROL 1.25 MG/3 ML NEB NEB SCH (02:17)
[2024-07-25] MEDS: INSULIN ASPART PER UNIT CHARGE SC SCH (02:56)
[2024-07-25] MEDS: OPTIRAY 320 125ml IV ONE (05:37)
--- NOTE | 2024-07-25 06:38 | CT Scan Report ---
EXAM: CT angio chest PE protocol CLINICAL HISTORY: CHEST PAIN, SOB, EVAL FOR PE TECHNIQUE: Contiguous 3.[address] angiographic images of the chest were acquired with the administration of intravenous contrast. Coronal and sagittal reconstructions were obtained. 118 ml Optiray 320 was administered for post-contrast images. One of these 3D techniques was utilized: Maximum Intensity Pixel (MIP), 3D Reconstructed Images, Volume Rendered Images, Surface Shaded Rendering. One of the following dose reduction techniques was utilized for this exam: Automated exposure control, adjustment of the mA and/or kV according to patient size, and use of iterative reconstruction. COMPARISON: with the prior x-ray dated 07/24/2024. FINDINGS: Aorta: Diffuse aortic atherosclerotic changes were noted. The thoracic aorta is normal in caliber. No evidence of aneurysm, dissection, The aortic arch and descending thoracic aorta are unremarkable. Pulmonary Arteries: Pulmonary arteries are normal in size and opacification. No evidence of pulmonary embolism. No stenosis or filling defects. Superior Vena Cava (SVC) and Inferior Vena Cava (IVC): Normal opacification and caliber. No evidence of thrombus or obstruction. Coronary Arteries: Coronary arteries are well-opacified. No significant stenosis or atherosclerotic changes. Mediastinum: A small reactive mediastinal lymph nodes are seen. Normal appearance of the thymus. Heart: Normal size and morphology of the heart. No pericardial effusion. Lungs: Left upper lung lobe 11 mm rounded soft tissue nodule is seen. Mild centilobular emphysematous changes were noted. Mild bilateral hilar bronchial wall thickening with mirta-bronchial cuffing noted. The apical and basal segments of the right lower lung lboe show scattered centrilobular nodular opacities with tree-in-bud appearance and air space opacification denoting active infection. Lungs are clear with no evidence of consolidation, nodules, or masses. No pleural effusion or thickening. Bones: No fractures or lytic/sclerotic lesions of the visualized bony structures. Normal alignment and bone density. Soft Tissues: Normal appearance of the visualized soft tissues. No abnormal masses or fluid collections. A small right breast subcutaneous cystic lesion (14x17 mm), harboring fat densities, suggesting a small sebaceous cyst. IMPRESSION: 1. Normal CT angiography of the chest apart from diffuse aortic atherosclerotic changes was noted. 2. No signs of pulmonary embolism are appreciated. 3. Evidence of right lower lung lobe pneumonitis with active bronchitis, follow-up is advised. 4. left upper lung lobe solid 11 mm nodule is seen, follow-up is advised. 5. Mild centri-lobular emphysematous changes were noted. 6. A small right breast subcutaneous cystic lesion (14x17 mm), harboring fat densities, suggesting a small sebaceous cyst. Electronically signed by Mat De Guzman 07-25-2024 06:38 AM
[2024-07-25 07:45] LABS: Base Excess VBG -0.3 mEq/L; HCO3 VBG 29 mmol/L; Oxygen Saturation VBG 87.3 %; PCO2 VBG 65 mmHg (38-50); PO2 VBG 55 mmHg; pH VBG 7.25 (7.36-7.41)
[2024-07-25 07:59] LABS: Basophils # (auto) 0.11 K/uL (0.00-0.20); Basophils % (auto) 0.8 %; Hematocrit (blood only) 47.6 % (42.0-52.0); Hemoglobin 15.4 g/dl (14.0-18.0); Immature Granulocytes # (auto) 0.36 K/uL (0.01-0.20); Immature Granulocytes % (auto) 2.6 %; Lymphocytes # (auto) 1.29 K/uL (1.20-3.40); Lymphocytes % (auto) 9.3 %; Mean Corpuscular Hgb Conc 32.4 g/dL (32.0-36.0); Mean Corpuscular Volume 92.8 fL (80.0-100.0); Mean Platelet Volume 8.6 fL (9.4-12.4); Monocytes # (auto) 1.47 K/uL (0.11-0.59); Monocytes % (auto) 10.6 %; Neutrophils # (auto) 10.63 K/uL (1.40-6.50); Neutrophils % (auto) 76.7 %; Platelet Count 294 K/uL (130-400); RDW Standard Deviation 44.2 fL (36.4-46.3); Red Blood Count 5.13 M/uL (4.70-6.10); White Blood Count 13.86 K/ul (4.8-10.8)
[2024-07-25 08:12] LABS: BUN Creatinine Ratio 27.6 (10-20); Calcium 8.7 mg/dl (8.6-10.3); Potassium 4.9 mmol/L (3.5-5.1)
[2024-07-25] MEDS: ASPIRIN 81 MG ECTAB PO SCH (08:49)
[2024-07-25] MEDS: EZETIMIBE 10 MG TAB PO SCH (08:49)
[2024-07-25] MEDS: DOXYCYCLINE HYCLATE 100 MG CAP PO SCH (08:49)
[2024-07-25] MEDS: lisinopril 2.5 MG TAB PO SCH (08:49)
[2024-07-25] MEDS: METOPROLOL SUCC 50MG EXT REL TAB PO SCH (08:49)
[2024-07-25] MEDS: ENOXAPARIN INJ 40 MG/0.4 ML SYR SQ SCH (08:50)
[2024-07-25] MEDS: dexAMETHasone 6 MG in SYRINGE 0 ML IV SCH (08:50)
[2024-07-25 09:20] LABS: iSTAT Arterial Blood Gas HCO3 27 meg/L (19-24); iSTAT Arterial Blood Gas pCO2 68 mmHg (35-46); iSTAT Arterial Blood Gas pH 7.21 (7.35-7.45); iSTAT Arterial Blood Gas pO2 58 mmHg (80-95); iSTAT Carbon Dioxide 29 mmol/L (24-31); iSTAT Hematocrit 46 % (42-52); iSTAT Hemoglobin 15.6 g/dl (14.0-18.0); iSTAT Potassium 4.2 mmol/L (3.3-5.0); iSTAT Sodium 137 mmol/L (135-144)
--- NOTE | 2024-07-25 09:27 | Hospitalist Progress Note ---
Date of Service July 25, 2024 Assessment & Plan (1) Acute respiratory failure with hypoxia and hypercapnia: Plan: Patient has refused noninvasive ventilation to assist with hypercapnia, pH was 7.25 with pCO2 of 65, will manage with Solu-Medrol 60 mg IV every 6 hours, treat COVID-19 infection with remdesivir, supplemental oxygen and monitor closely for any decompensation. Use mucolytic's, replace electrolytes if needed, add zinc and vitamin C. (2) COVID-19: Plan: Commit to 5-day course of remdesivir, continue respiratory care, oxygen supplement, mucolytic. Solu-Medrol 60 mg IV every 6 hours. Monitor for any decompensation.. (3) Elevated troponin: Plan: Troponin has gone slightly up up to 68.6, the last EKG which apparently is from July 24, 2024 shows wide-complex tachycardia, with a heart rate of 124, this could be in the light of right bundle branch block be as a result of aberrant conduction. Will monitor closely, replace electrolytes as needed, get echocardiogram and may consider consulting cardiology. Will try some sedatives as patient is extremely anxious. (4) COPD with exacerbation: Plan: Continue with Solu-Medrol, supplemental oxygen, mucolytics, monitor response to treatment. (5) Hyperlipidemia: Plan: Continue with home dose of Zetia 10 mg daily. (6) Hypertension, essential: Plan: Blood pressure is stable, continue with lisinopril 2.5 mg daily and Toprol-XL 50 mg daily. Plan Continue monitoring troponin, respiratory status, continue with Solu-Medrol, doxycycline, remdesivir, commit to 5 days of treatment, patient is noncompliant with treatment and he already told me that he may sign AGAINST MEDICAL ADVICE after 1 day of hospital stay we will see how he does tomorrow. Will replace electrolytes as needed. Continue with telemetry. Admission and Anticipated Discharge Date Admission Date: July 24, 2024 Subjective Patient is a 63-year-old obese gentleman with history of coronary artery disease, carotid artery disease, severe COPD/emphysema, pulmonary nodule, hypertension, dyslipidemia and depression who lives alone, patient started getting ill several days prior to this with progressive respiratory decompensation and wheezing and hence came to the hospital, patient was found to have been positive for COVID, he had taken 4 COVID vaccines in the past. CT of the chest showed right lower lobe pneumonitis and a 11 mm left upper lobe lung nodule. Patient was seen and examined, currently in severe respiratory distress with forceful breathing and prolonged expiration and bilateral diffuse wheezing, patient will be managed with the impression of COVID-19 disease and COPD exacerbation with acute hypoxemic and hypercapnic respiratory failure, patient was offered BiPAP in the ER but he refused. Physical Exam Physical Exam: VITALS: Reviewed. WEIGHT/BMI reviewed. GEN: Healthy appearing, well-developed, NAD. HEENT -Head: NC/AT; plethoric NECK: Supple, with no masses. CV: Tachycardic, no murmur LUNGS: Extensive bilateral wheezing with prolonged expiration, bibasilar crackles ABD: Obese, soft, NT/ND, NBS, no masses or organomegaly. SKIN: Warm, well perfused. No skin rashes or abnormal lesions. MSK: No deformities, Normal gait. EXT: No clubbing, cyanosis, or edema. NEURO: Ambulating with no limitations. Normal muscle strength and tone. No focal deficits. Results & Data Results & Data Vital Signs (Past 12 Hours) Vital Signs Pulse Pulse Resp BP BP Pulse Ox Pulse Ox 07/25/24 09:05 07/25/24 08:48 128/97 07/25/24 08:45 76 24 93 07/25/24 08:21 64 22 93 07/25/24 07:48 86 07/25/24 07:00 85 26 H 97 07/25/24 06:09 87 23 96 07/25/24 05:22 89 24 157/97 H 96 07/25/24 05:15 157/97 H 07/25/24 05:15 157/97 H 07/25/24 05:00 76 28 H 99 07/25/24 03:33 81 20 183/109 H 96 07/25/24 03:21 72 21 94 07/25/24 03:17 97 07/25/24 00:30 88 29 H 148/92 H 99 07/25/24 00:15 87 30 H 157/95 H 98 07/24/24 23:57 95 H 22 96 07/24/24 23:56 95 H 22 96 07/24/24 23:30 85 28 H 157/94 H 99 07/24/24 23:24 93 H 07/24/24 23:15 92 H 25 H 164/106 H 97 07/24/24 23:00 98 H 29 H 174/99 H 97 07/24/24 22:30 107 H 28 H 160/107 H 94 07/24/24 22:15 103 H 28 H 129/105 H 95 07/24/24 22:00 101 H 25 H 164/103 H 96 07/24/24 21:45 98 H 22 150/92 H 07/24/24 21:32 95 H 139/85 07/24/24 21:30 99 H 28 H 139/85 95 O2 Del Method O2 Del Method O2 Flow Rate FiO2 07/25/24 09:05 Nasal Cannula 3 07/25/24 08:48 07/25/24 08:45 07/25/24 08:21 Nasal Cannula 3 07/25/24 07:48 07/25/24 07:00 Nasal Cannula 4 07/25/24 06:09 07/25/24 05:22 Nasal Cannula 4 07/25/24 05:15 07/25/24 05:15 07/25/24 05:00 07/25/24 03:33 BiPAP 07/25/24 03:21 40 07/25/24 03:17 BiPAP 07/25/24 00:30 BiPAP 07/25/24 00:15 07/24/24 23:57 40 07/24/24 23:56 BiPAP 40 07/24/24 23:30 BiPAP 07/24/24 23:24 07/24/24 23:15 BiPAP 07/24/24 23:00 BiPAP 07/24/24 22:30 Nasal Cannula 4 07/24/24 22:15 07/24/24 22:00 07/24/24 21:45 07/24/24 21:32 07/24/24 21:30 Nasal Cannula 4 Laboratory Results Laboratory Results - last 24 hr 07/24/24 07/24/24 07/24/24 18:40 19:43 19:46 WBC 17.24 H RBC 5.57 Hgb 16.7 Hct 50.9 MCV 91.4 MCH 30.0 MCHC 32.8 RDW Std Deviation 43.1 RDW Coeff of Celia 12.8 Plt Count 324 MPV 8.7 L Immature Gran % (Auto) 1.7 Neut % (Auto) 75.2 Lymph % (Auto) 11.1 [place] % (Auto) 11.5 Eos % (Auto) 0.1 Baso % (Auto) 0.4 Neut # (Auto) 12.96 H Lymph # (Auto) 1.92 [place] # (Auto) 1.98 H Eos # (Auto) 0.01 Baso # (Auto) 0.07 Immature Gran # (Auto) 0.30 H PT 10.1 INR 0.9 VBG pH 7.24 L VBG pCO2 69 H VBG pO2 41 VBG HCO3 30 VBG O2 Saturation 64.0 VBG Base Excess 0.4 Sodium Cancelled 139 Potassium Cancelled 4.4 Chloride Cancelled 104 Carbon Dioxide Cancelled 27 Anion Gap Cancelled 8 BUN Cancelled 34 H Creatinine Cancelled 1.18 Est Cr Clr Drug Dosing Cancelled 78.3 eGFR Cancelled 68.91 BUN/Creatinine Ratio Cancelled 28.8 H Glucose Cancelled 140 H POC Glucose Lactate 0.9 Calcium Cancelled 9.1 Magnesium Cancelled 2.2 Total Bilirubin Cancelled 0.3 AST Cancelled 30 ALT Cancelled 35 Alkaline Phosphatase Cancelled 68 Troponin I High Sens Cancelled 37.7 H D B-Natriuretic Peptide 119 H Total Protein Cancelled 7.2 Albumin Cancelled 3.6 Globulin Cancelled 3.6 Albumin/Globulin Ratio Cancelled 1.0 Procalcitonin 0.14 TSH Adenovirus (PCR) Not Detected B. pertussis DNA (PCR) Not Detected B.parapertussis DNA PCR Not Detected C. pneumoniae DNA (PCR) Not Detected Coronavirus OC43 (PCR) Not Detected Coronavirus HKU1 (PCR) Not Detected Coronavirus 229E (PCR) Not Detected SARS-CoV-2 (PCR) DETECTED A Coronavirus NL63 (PCR) Not Detected Human Metapneumovir PCR Not Detected Influenza Type A (PCR) Not Detected Influenza Type B (PCR) Not Detected M. pneumoniae (PCR) Not Detected Parainfluenza 1 (PCR) Not Detected Parainfluenza 2 (PCR) Not Detected Parainfluenza 3 (PCR) Not Detected Parainfluenza 4 (PCR) Not Detected RSV (PCR) Not Detected Entero/Rhino (PCR) Not Detected 07/24/24 07/25/24 07/25/24 22:51 01:23 02:52 WBC 15.43 H RBC 5.11 Hgb 15.7 Hct 47.6 MCV 93.2 MCH 30.7 MCHC 33.0 RDW Std Deviation 44.3 RDW Coeff of Celia 13.0 Plt Count 276 MPV 8.7 L Immature Gran % (Auto) 1.7 Neut % (Auto) 78.8 Lymph % (Auto) 8.0 [place] % (Auto) 10.9 Eos % (Auto) 0.1 Baso % (Auto) 0.5 Neut # (Auto) 12.18 H Lymph # (Auto) 1.23 [place] # (Auto) 1.68 H Eos # (Auto) 0.01 Baso # (Auto) 0.07 Immature Gran # (Auto) 0.26 H PT INR VBG pH 7.15 L 7.23 L VBG pCO2 78 H 67 H VBG pO2 67 87 VBG HCO3 27 28 VBG O2 Saturation 91.8 97.7 VBG Base Excess -3.6 -1.1 Sodium 138 Potassium 4.9 Chloride 106 Carbon Dioxide 27 Anion Gap 5 BUN 31 H Creatinine 1.07 Est Cr Clr Drug Dosing 86.3 eGFR 77.49 BUN/Creatinine Ratio 29.0 H Glucose 139 H POC Glucose 123 H Lactate Calcium 8.7 Magnesium Total Bilirubin AST ALT Alkaline Phosphatase Troponin I High Sens 62.5 H* D 68.6 H* B-Natriuretic Peptide Total Protein Albumin Globulin Albumin/Globulin Ratio Procalcitonin TSH 0.737 Adenovirus (PCR) B. pertussis DNA (PCR) B.parapertussis DNA PCR C. pneumoniae DNA (PCR) Coronavirus OC43 (PCR) Coronavirus HKU1 (PCR) Coronavirus 229E (PCR) SARS-CoV-2 (PCR) Coronavirus NL63 (PCR) Human Metapneumovir PCR Influenza Type A (PCR) Influenza Type B (PCR) M. pneumoniae (PCR) Parainfluenza 1 (PCR) Parainfluenza 2 (PCR) Parainfluenza 3 (PCR) Parainfluenza 4 (PCR) RSV (PCR) Entero/Rhino (PCR) 07/25/24 07/25/24 05:43 07:16 WBC 13.86 H RBC 5.13 Hgb 15.4 Hct 47.6 MCV 92.8 MCH 30.0 MCHC 32.4 RDW Std Deviation 44.2 RDW Coeff of Celia 13.0 Plt Count 294 MPV 8.6 L Immature Gran % (Auto) 2.6 Neut % (Auto) 76.7 Lymph % (Auto) 9.3 [place] % (Auto) 10.6 Eos % (Auto) 0.0 Baso % (Auto) 0.8 Neut # (Auto) 10.63 H Lymph # (Auto) 1.29 [place] # (Auto) 1.47 H Eos # (Auto) 0.00 Baso # (Auto) 0.11 Immature Gran # (Auto) 0.36 H PT INR VBG pH 7.25 L VBG pCO2 65 H VBG pO2 55 VBG HCO3 29 VBG O2 Saturation 87.3 VBG Base Excess -0.3 Sodium 138 Potassium 4.9 Chloride 104 Carbon Dioxide 29 Anion Gap 5 BUN 29 H Creatinine 1.05 Est Cr Clr Drug Dosing 88.0 eGFR 79.27 BUN/Creatinine Ratio 27.6 H Glucose 133 H POC Glucose 132 H Lactate Calcium 8.7 Magnesium Total Bilirubin AST ALT Alkaline Phosphatase Troponin I High Sens B-Natriuretic Peptide Total Protein Albumin Globulin Albumin/Globulin Ratio Procalcitonin TSH Adenovirus (PCR) B. pertussis DNA (PCR) B.parapertussis DNA PCR C. pneumoniae DNA (PCR) Coronavirus OC43 (PCR) Coronavirus HKU1 (PCR) Coronavirus 229E (PCR) SARS-CoV-2 (PCR) Coronavirus NL63 (PCR) Human Metapneumovir PCR Influenza Type A (PCR) Influenza Type B (PCR) M. pneumoniae (PCR) Parainfluenza 1 (PCR) Parainfluenza 2 (PCR) Parainfluenza 3 (PCR) Parainfluenza 4 (PCR) RSV (PCR) Entero/Rhino (PCR) Diagnostic Findings Chest X-Ray 07/24/24 18:36 EXAM: XR chest 1V portable CLINICAL HISTORY: DYSPNEA. TECHNIQUE: Chest X-ray, Frontal AP Projection. COMPARISON: Prior dated 07/23/2024. FINDINGS: Redemonstration of the reticular opacities in both lungs' mid and lower zones. No consolidation or soft tissue nodular infiltration was seen. Both mediastinal and hilar contours are intact. The right CP angle is intact. The left CP angle can not be commented. Stable appearing mild cardiomegaly. Retrocardiac space is clear. No significant pathology was identified in the visualized skeleton. IMPRESSION: 1. Redemonstration of the reticular opacities in both lungs' mid and lower zones. 2. Stable appearing mild cardiomegaly. 3. No interval change is noted. 4. Further evaluation with CT is recommended if clinically warranted. Electronically signed by Mat De Guzman 07-24-2024 7:51 PM Chest CTA 07/24/24 22:46 EXAM: CT angio chest PE protocol CLINICAL HISTORY: CHEST PAIN, SOB, EVAL FOR PE TECHNIQUE: Contiguous 3.[address] angiographic images of the chest were acquired with the administration of intravenous contrast. Coronal and sagittal reconstructions were obtained. 118 ml Optiray 320 was administered for post-contrast images. One of these 3D techniques was utilized: Maximum Intensity Pixel (MIP), 3D Reconstructed Images, Volume Rendered Images, Surface Shaded Rendering. One of the following dose reduction techniques was utilized for this exam: Automated exposure control, adjustment of the mA and/or kV according to patient size, and use of iterative reconstruction. COMPARISON: with the prior x-ray dated 07/24/2024. FINDINGS: Aorta: Diffuse aortic atherosclerotic changes were noted. The thoracic aorta is normal in caliber. No evidence of aneurysm, dissection, The aortic arch and descending thoracic aorta are unremarkable. Pulmonary Arteries: Pulmonary arteries are normal in size and opacification. No evidence of pulmonary embolism. No stenosis or filling defects. Superior Vena Cava (SVC) and Inferior Vena Cava (IVC): Normal opacification and caliber. No evidence of thrombus or obstruction. Coronary Arteries: Coronary arteries are well-opacified. No significant stenosis or atherosclerotic changes. Mediastinum: A small reactive mediastinal lymph nodes are seen. Normal appearance of the thymus. Heart: Normal size and morphology of the heart. No pericardial effusion. Lungs: Left upper lung lobe 11 mm rounded soft tissue nodule is seen. Mild centilobular emphysematous changes were noted. Mild bilateral hilar bronchial wall thickening with mirta-bronchial cuffing noted. The apical and basal segments of the right lower lung lboe show scattered centrilobular nodular opacities with tree-in-bud appearance and air space opacification denoting active infection. Lungs are clear with no evidence of consolidation, nodules, or masses. No pleural effusion or thickening. Bones: No fractures or lytic/sclerotic lesions of the visualized bony structures. Normal alignment and bone density. Soft Tissues: Normal appearance of the visualized soft tissues. No abnormal masses or fluid collections. A small right breast subcutaneous cystic lesion (14x17 mm), harboring fat densities, suggesting a small sebaceous cyst. IMPRESSION: 1. Normal CT angiography of the chest apart from diffuse aortic atherosclerotic changes was noted. 2. No signs of pulmonary embolism are appreciated. 3. Evidence of right lower lung lobe pneumonitis with active bronchitis, follow-up is advised. 4. left upper lung lobe solid 11 mm nodule is seen, follow-up is advised. 5. Mild centri-lobular emphysematous changes were noted. 6. A small right breast subcutaneous cystic lesion (14x17 mm), harboring fat densities, suggesting a small sebaceous cyst. Electronically signed by Mat De Guzman 07-25-2024 06:38 AM Medications Administered Current Inpatient Medications Aspirin (Aspirin 81 Mg Ectab) 81 mg PO DAILY GRIS Stop: 08/24/24 08:59 Last Admin: 07/25/24 08:49 Dose: 81 mg Calcium Carbonate (Calcium Carbonate 500 Mg Chewable Tab) 500 mg PO BID PRN PRN Reason: Acid Reflux Stop: 08/23/24 22:45 Dextrose (Dextrose 50% 50 Ml Syringe) 25 - 50 ml IV UD PRN; Protocol PRN Reason: Hypoglycemia Protocol Stop: 08/24/24 01:46 Doxycycline Hyclate (Doxycycline Hyclate 100 Mg Cap) 100 mg PO BID GRIS Stop: 07/30/24 08:59 Last Admin: 07/25/24 08:49 Dose: 100 mg Ezetimibe (Ezetimibe 10 Mg Tab) 10 mg PO QAM [facility] Stop: 08/24/24 08:59 Last Admin: 07/25/24 08:49 Dose: 10 mg Enoxaparin Sodium (Enoxaparin Inj 40 Mg/0.4 Ml Syr) 40 mg SQ QAM [facility] Stop: 08/24/24 08:59 Last Admin: 07/25/24 08:50 Dose: 40 mg Glucagon (Glucagon For Inj 1 Mg Vial) 1 mg SQ UD PRN; Protocol PRN Reason: Hypoglycemia Protocol Stop: 08/24/24 01:46 Glucose (Glucose 40% Gel 15 Gm Tube) 15 - 30 gm PO UD PRN; Protocol PRN Reason: Hypoglycemia Protocol Stop: 08/24/24 01:46 Glucose (Glucose 10 Tab/Tube) 4 - 8 tab PO UD PRN; Protocol PRN Reason: Hypoglycemia Protocol Stop: 08/24/24 01:46 Hydroxyzine HCl (Hydroxyzine Hcl 25 Mg Tab) 25 mg PO QID PRN PRN Reason: Anxiety Stop: 08/23/24 22:42 Remdesivir 100 mg/ Sodium (Chloride) 250 mls @ 250 mls/hr IV Q24H [facility] Stop: 07/28/24 20:59 Dexamethasone 6 mg/ Syringe 1.5 mls @ 1 mls/min IV Q24H [facility] Stop: 08/24/24 08:59 Last Admin: 07/25/24 08:50 Dose: 1 mls/min Promethazine HCl (Phenergan) 6.25 mg in 50.25 mls @ 201 mls/hr IV Q6H PRN PRN Reason: Nausea And Vomiting Stop: 08/23/24 22:42 Insulin Aspart (Insulin Aspart Per Unit Charge) 0 units SC Q6 [facility] Stop: 08/24/24 01:46 Last Admin: 07/25/24 05:49 Dose: Not Given Ipratropium [place] (Ipratropium [place] Neb Soln 0.02% 0.5mg/2.5ml Vial) 0.5 mg INH Q6R [facility] Stop: 08/24/24 00:59 Last Admin: 07/25/24 07:00 Dose: 0.5 mg Levalbuterol HCl (Levalbuterol 1.25 Mg/3 Ml Neb) 1.25 mg NEB Q6R [facility] Stop: 08/24/24 00:59 Last Admin: 07/25/24 07:00 Dose: 1.25 mg Lisinopril (Lisinopril 2.5 Mg Tab) [facility] [place]: 08/24/24 08:59 Last Admin: 07/25/24 08:49 Dose: 2.5 mg Melatonin (Melatonin 3 Mg Tab) 9 mg PO HS PRN PRN Reason: Sleep Stop: 08/24/24 02:00 Metoprolol Succinate (Metoprolol Succ 50mg Ext Rel Tab) [facility] [place] Stop: 08/24/24 08:59 Last Admin: 07/25/24 08:49 Dose: 50 mg Miscellaneous (Carbohydrates For Hypoglycemia ) 15 - 30 gm PO UD PRN PRN Reason: Hypoglycemia Protocol Stop: 08/24/24 01:46 Nitroglycerin (Nitroglycerin Sl 0.4 Mg/Tab Tab) 0.4 mg SL UD PRN PRN Reason: Chest Pain Stop: 08/23/24 22:45 (5) Hyperlipidemia Hyperlipidemia type: mixed hyperlipidemia Qualified Code(s): E78.2 - Mixed hyperlipidemia
[2024-07-25] MEDS: ASCORBIC ACID 500 MG TAB PO SCH (10:27)
[2024-07-25] MEDS: methylPREDNISolone 125 MG/2 ML VIAL IV STA (10:28)
[2024-07-25] MEDS: ZINC SULFATE 220 MG CAPSULE PO SCH (10:28)
[2024-07-25] MEDS: hydrOXYzine HCl 25 MG TAB PO PRN (10:28)
[2024-07-25 12:01] LABS: Appearance Urine Clear (Clear); Bacteria Urine Automated None Seen (None Seen); Bilirubin Urine Negative (Negative); Blood Urine Negative (Negative); Cast Urine Automated 0-2 /lpf (0-2); Color Urine Yellow; Epithelial Cell Urine Auto 0-2 /hpf (0-2); Glucose Urine UA Negative (Negative); Ketones Urine Negative (Negative); Leukocyte Esterase Urine Negative (Negative); Nitrite Urine Negative (Negative); Protein Urine 2+ (Negative); RBC Urine Automated 0-2 /hpf (0-2); Specific Gravity Urine 1.039 (1.000-1.030); Urobilinogen Urine Negative (Negative); WBC Urine Automated 0-5 /hpf (0-5); pH Urine 5.5 (4.5-7.5)
--- NOTE | 2024-07-25 12:43 | Electrocardiogram Report ---
Test Reason : Blood Pressure : */* mmHG Vent. Rate : 124 BPM Atrial Rate : * BPM P-R Int : * ms QRS Dur : 154 ms QT Int : 382 ms P-R-T Axes : * 242 40 degrees QTcB Int : 548 ms Poor data quality, interpretation may be adversely affected Sinus tachycardia Right bundle branch block Abnormal ECG When compared with ECG of 23-Jul-2024 05:50, No significant change Confirmed by Alejo Mata ([id number]) on 07/25/2024 12:43:03 PM Referred By: Confirmed By: Alejo Mata
[2024-07-25] MEDS: REMDESIVIR 100 MG in SODIUM CHLORIDE 0.9% 230 ML IV SCH (19:53)
[2024-07-25] MEDS: guaiFENesin 600 MG TABCR PO SCH (19:58)
--- NOTE | 2024-07-26 09:22 | Discharge Summary ---
Discharge Summary Date of Service July 26, 2024 Principal Dx & Hospital Course #1 = Principal Diagnosis (1) Acute respiratory failure with hypoxia and hypercapnia: (2) COVID-19: (3) Elevated troponin: (4) COPD with exacerbation: (5) Hyperlipidemia: (6) Hypertension, essential: Notes For Next Care Provider Medication Changes From Visit No medication as patient signed AMA Admission HPI Per Admitting Provider Patient is a 63-year-old obese gentleman with history of coronary artery disease, carotid artery disease, severe COPD/emphysema, pulmonary nodule, hypertension, dyslipidemia and depression who lives alone, patient started getting ill several days prior to this with progressive respiratory decompensation and wheezing and hence came to the hospital, patient was found to have been positive for COVID, he had taken 4 COVID vaccines in the past. CT of the chest showed right lower lobe pneumonitis and a 11 mm left upper lobe lung nodule. Upon admission patient was adamant that he would not stay beyond 1 day, he was seen and examined today, he had ongoing wheezing which is slightly better than yesterday, I again voiced my concern about his status and explained that there is no oral treatment that I can offer him at this time, he needed to complete a course of IV remdesivir and also Solu-Medrol, he was adamant that he would leave by noon time and I told him that if he considers coming back, he needs to understand that this probably takes more than 1 day to resolve. He understands the issue but he thinks that most of the times he gets better after getting home and so he would sign AMA Updated Medication List Medication Instructions Recorded Confirmed Type albuterol sulfate 90 mcg/actuation 2 puff inhalation Q4H PRN wheezing 01/24/23 07/24/24 History aerosol inhaler or SOB ezetimibe 10 mg tablet 10 mg PO QAM 01/24/23 07/24/24 History lisinopril 2.5 mg tablet 2.5 mg PO QAM 01/24/23 07/24/24 History metoprolol succinate 50 mg 50 mg PO QAM 01/24/23 07/24/24 History tablet,extended release 24 hr nitroglycerin 0.4 mg sublingual 4 mg sublingual DIRECTED PRN 01/24/23 07/24/24 History tablet (Nitrostat) Chest Pain rosuvastatin 40 mg tablet 40 mg PO QAM 01/24/23 07/24/24 History aspirin 81 mg tablet,delayed 81 mg PO DAILY 01/26/23 07/24/24 History release calcium carb 1,000 mg-mag hydrox 2 tab PO DIRECTED PRN Acid 01/26/23 07/24/24 History 200 mg-simeth 40 mg chewable Reflux tablet (Rolaids Advanced Antacid Plus Anti-gas) calcium carbonate (Tums) 400 mg PO BID PRN Acid Reflux 01/26/23 07/24/24 History melatonin 10 mg tablet 30 mg PO HS PRN Sleep 01/26/23 07/24/24 History albuterol sulfate 1.25 mg/3 mL 1.25 mg inhalation BID 06/11/24 07/24/24 History solution for nebulization fluticasone 250 mcg-salmeterol 50 1 inh inhalation BID 06/11/24 07/24/24 History mcg/dose blistr powdr for inhalation nirmatrelvir 300 mg (150 mg See Rx Instructions PO .COMPLEX 07/23/24 07/24/24 Rx x2)-ritonavir 100 mg tablet,dose #30 ea pack (Paxlovid) prednisone 20 mg tablet 20 mg PO BID 5 days #10 tabs 07/23/24 07/24/24 Rx Hospital Stay Data Consultations 07/24/24 19:57 ED Decision to Admit Stat Diagnostic Imagining Performed 07/24/24 22:46 CT angio chest PE protocol Stat Pending Results Patient Have Any Pending Studies at Discharge: No Total Time Total Time Spent Total Time Spent (In Minutes): Less than 35 minutes
[2024-07-26 09:34] LABS: Albumin Level 3.3 gm/dl (3.4-5.0); BUN Creatinine Ratio 30.9 (10-20); Bilirubin,Total 0.3 mg/dl (0.2-1.0); Calcium 8.9 mg/dl (8.6-10.3); Creatinine Clr Calc Pharmacy 98.5 ml/min; Globulin 3.2 gm/dl (2.5-4.0); Potassium 4.6 mmol/L (3.5-5.1); Total Protein 6.5 gm/dl (6.0-8.3)
[2024-07-26 09:50] LABS: Basophils # (auto) 0.01 K/uL (0.00-0.20); Basophils % (auto) 0.1 %; Eosinophils # (auto) 0.03 K/uL (0.00-0.50); Eosinophils % (auto) 0.2 %; Hematocrit (blood only) 48.7 % (42.0-52.0); Hemoglobin 15.8 g/dl (14.0-18.0); Immature Granulocytes # (auto) 0.63 K/uL (0.01-0.20); Immature Granulocytes % (auto) 3.8 %; Lymphocytes # (auto) 2.29 K/uL (1.20-3.40); Lymphocytes % (auto) 13.7 %; Mean Corpuscular Hemoglobin 30.4 pg (25.0-34.0); Mean Corpuscular Hgb Conc 32.4 g/dL (32.0-36.0); Mean Corpuscular Volume 93.7 fL (80.0-100.0); Mean Platelet Volume 8.5 fL (9.4-12.4); Monocytes # (auto) 1.14 K/uL (0.11-0.59); Monocytes % (auto) 6.8 %; Neutrophils % (auto) 75.4 %; Platelet Count 321 K/uL (130-400); RDW Coefficient of Variation 12.9 % (11.5-14.5); RDW Standard Deviation 44.3 fL (36.4-46.3)
== END 2024-07-26 11:21 | disposition left against medical advice (07) | DRG 177 ==
LOC: ED 18:35 → EDINP 22:41 → 4W 07-25 01:47